=== PATIENT | male | born 2000 | race Caucasian/White ===

== ENCOUNTER 2024-10-01 23:57 | Emergency (ER) | payer OTHER, BC, SELFPAY ==
--- NOTE | ~2024-10-01 | CT_ITS ---
Clinical Indication: Trauma, status post fall CT Scan of the Chest, Abdomen, and Pelvis, thoracic spine, lumbar spine without Contrast: Technique: Contiguous sections were acquired throughout the chest, abdomen, and pelvis without IV con trast administration. Dedicated axial imaging of the thoracic and lumbar spine was also performed, wi th sagittal and coronal reformatted images. Dose reduction technique was used on this scan by [employer] automated exposure control and iterative reconstruction technique. The dose-length product (DLP) w as 2953.83 mGy-cm. Chest/abdomen/pelvis Findings: There is no evidence of any significant mediastinal, hilar or axillary lymphadenopathy. The mediastinal soft tissues appear normal. There is no evidence of pleural or pericardial effusion. The lungs are clear. No pulmonary nodules or infiltrates are noted. The liver, spleen, pancreas, gallbladder, adrenals and kidneys are within normal limits. No evidence of aortic aneurysm. No lymphadenopathy. No bowel obstruction or bowel wall thickening. There is no evidence to suggest acute appendicitis. Urinary bladder is unremarkable. No pelvic mass seen. No ascites. Thoracolumbar spine findings: Exam mildly degraded by motion artifact. No definite fracture or sublux ation seen in thoracic spine. No definite disc bulge or herniation. No definite canal stenosis, cord compression, or neural foraminal narrowing. There is no fracture or subluxation lumbar spine. Vertebral bodies maintain normal height and alignme nt. There are minimal degenerative disc changes. No disc bulge or herniation evident. No spinal canal stenosis or neural foraminal narrowing evident. Impression: No significant abnormalities seen. Reviewed, dictated and finalized at [facility]. IFIED NURSE Impression: No significant abnormalities seen.
--- NOTE | ~2024-10-01 | CT_ITS ---
Non-contrast Head CT History: Status post fall Technique: Axial non-contrast imaging of the brain was performed. Dose reduction technique was used on this scan by utilizing automated exposure control and iterative reconstruction technique. The dose -length product (DLP) was 605.33 mGy-cm. Findings: There is no evidence of intracranial hemorrhage, mass lesion, or acute infarct. Brain par enchyma appears normal. The ventricles and subarachnoid spaces are normal in size. The calvarium ap pears normal. The visualized paranasal sinuses and mastoid air cells are clear. Impression: No significant abnormality seen. Reviewed, dictated and finalized at location . GENCY MANAGER Impression: No significant abnormality seen.
--- NOTE | ~2024-10-01 | CT_ITS ---
CT Facial Bones and Cervical Spine Clinical Indication: Status post fall Technique: Contiguous axial scans were obtained through the facial bones and cervical spine followed by coronal and sagittal reconstructions. Dose reduction technique was used on this scan by utilizing automated exposure control and iterative reconstruction technique. The dose-length product (DLP) was 1094.48 mGy-cm. Findings: CT facial bones: There is a predominantly oblique, comminuted, minimally displaced fracture of the ri ght mandibular condyle. There is a subtle oblique, nondisplaced fracture through the angle of the lef t mandible. The visualized paranasal sinuses are clear. Intraorbital soft tissues appear normal. CT cervical spine: Exam degraded by motion artifact. No fractures or subluxation seen. Unremarkable visualized bony structures. The intervertebral disc spaces are preserved. No prevertebral soft tissu e swelling. Impression: Acute, predominantly oblique, comminuted, mildly displaced fracture the right mandibular condyle. Subtle, oblique, nondisplaced fracture of the angle of the left mandible. No fracture or subluxation of the cervical spine. Reviewed, dictated and finalized at [facility]. LIVER SORTER Impression: Acute, predominantly oblique, comminuted, mildly displaced fracture the right m andibular condyle. Subtle, oblique, nondisplaced fracture of the angle of the left mandible. No fracture or subluxation of the cervical spine.
[2024-10-01 23:59] VITALS: BP 125/79; PULSE 88; RESP 18; O2SAT 95
[2024-10-02] VITALS (8 sets, daily range): BP systolic 111–134; BP diastolic 62–93; PULSE 48–91; RESP 11–23; TEMP 36.4; O2SAT 90–100
--- NOTE | 2024-10-02 00:15 | PC.NURSE ---
patient to ct via stretcher
--- NOTE | 2024-10-02 00:30 | PC.NURSE ---
bilateral breath sounds clear to auscultation. abdominal sounds present in all 4 quadrants. no tenderness noted with palpation. patient will not remain still. kicking legs up and moving arms.
--- NOTE | 2024-10-02 00:33 | ECG_ITS ---
Test Date: 2024-10-02 00:53:57 Measurements Intervals [place] Rate: 75 P: 50 VT: 152 QRS: 101 QRSD: 122 T: -3 QT: 396 QTc: 443 Interpretive Statements SINUS RHYTHM RIGHT AXIS DEVIATION INTRAVENTRICULAR CONDUCTION DELAY ST ELEVATION IN ANT/HIGH LAT LEADS, PROBABLY EARLY REPOLARIZATION BORDERLINE ST-T WAVE ABNORMALITY- INFERIOR LEADS BORDERLINE ECG No previous ECG available for comparison Electronically Signed On 10-02-2024 07:09:21 MAINTENANCE ASSISTANT by Georges Fox D.O.
[2024-10-02 00:36] LABS: Alanine Aminotransferase 43 U/L (16-63); Alkaline Phosphatase 73 U/L (46-116); Anion Gap 12 mmol/L (4-12); Aspartate Amino Transferase 36 U/L (15-37); Bilirubin,Total 0.3 mg/dL (0.00-1.00); Blood Urea Nitrogen 12 mg/dL (7-18); Calcium 8.3 mg/dL (8.5-10.1); Carbon Dioxide 27 mmol/L (21-32); Chloride 105 mmol/L (98-108); Creatine Kinase 497 U/L (39-308); Estimated CRCL calculation 99 ml/min; Estimated Glomerular Filt Rate > 60; Glucose 136 mg/dL (70-99); Osmolality Calculated 299 mOsm/kg (285-295); Potassium 3.4 mmol/L (3.5-5.1); Sodium 144 mmol/L (136-145); Total Protein 7.4 g/dL (6.4-8.2)
[2024-10-02 00:37] LABS: Partial Thromboplastin Time 22.5 Sec (23.9-30.70); Prothrombin Time 10.7 Seconds (9.50-12.1)
--- NOTE | 2024-10-02 00:39 | PC.NURSE ---
several attempts to place rigid collar on arrival. patient kept pulling it off. patient now has cervical collar in place. with help of girlfriend, patient hands being distracted from pulling rigid collar off. patient does not lay still. moving arms and legs all around. will not maintain spinal mobilization.
[2024-10-02] MEDS: SODIUM CHLORIDE 0.9% IV 1,000 ML 999 ML IV CONT (00:42)
[2024-10-02] MEDS: MORPHINE SULFATE (*CRX) 4 MG/ML INJ IV PUSH (00:42)
--- NOTE | 2024-10-02 00:46 | PC.NURSE ---
patient is angry that the hard collar is in place. keeps trying to take it off. encouraging patient to keep collar in place. girlfriend at the bedside
[2024-10-02 00:47] LABS: Ethanol 252 mg/dL (0-6)
[2024-10-02 01:01] LABS: Basophils Absolute Auto 0.07 K/mm3 (0.00-0.10); Basophils Percent Auto 0.8 % (0.0-1.0); Eosinophils Absolute Auto 0.14 K/mm3 (0.02-0.50); Eosinophils Percent Auto 1.5 % (1.0-6.0); Hematocrit 42.7 % (40.0-54.0); Immature Granulocyte Absolute 0.08 K/mm3 (0.00-0.00); Immature Granulocyte Percent A 0.9 % (0.0-0.0); Lymphocytes Absolute Auto 4.32 K/mm3 (1.10-4.50); Lymphocytes Percent Auto 47.2 % (18.0-42.0); Mean Corpuscular HGB Conc 35.1 g/dL (32-36); Mean Corpuscular Hemoglobin 30.5 pg (27.0-31.0); Mean Corpuscular Volume 86.8 fL (78.0-102.0); Mean Platelet Volume 9.1 fl (8.7-11.0); Monocytes Absolute Auto 0.71 K/mm3 (0.10-0.90); Monocytes Percent Auto 7.8 % (2.0-11.0); Neutrophils Absolute Auto 3.84 K/mm3 (1.70-7.20); Neutrophils Percent Auto 41.8 % (50.0-70.0); Platelet Count Result 408 K/mm3 (150-420); Red Blood Count 4.92 M/mm3 (4.70-6.10); Red Cell Distribution Width 12.4 % (11.6-14.4); White Blood Count 9.2 K/mm3 (4.8-10.8)
--- NOTE | 2024-10-02 01:03 | PC.NURSE ---
patient continues to grunt and yell. continues to try and pull rigid collar off. girlfriend helping distract patient. gauze has been placed to wound on patients chin several times
[2024-10-02] MEDS: ONDANSETRON INJ 4 MG/2 ML VIAL IV PUSH (01:15)
[2024-10-02] MEDS: HYDROmorphone HCL INJ (*CRX) 2 MG/ML VIAL 1 MG IV PUSH (01:15)
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
[2024-10-02] MEDS: TETANUS,DIPHTHERIA,AC PERTUSSIS ADULT 0.5 ML (ADACEL) IM (01:30)
[2024-10-02] MEDS: LORazepam INJ (*CRX) 2 MG/ML VIAL 0.5 MG IV PUSH (01:45)
== END 2024-10-02 01:56 | disposition short-term general hospital (02) ==
PROVIDERS: Emergency Provider Emergency Medicine
DX: S02.609A Fracture of mandible, unspecified, initial encounter for closed fracture (principal); S01.81XA Laceration without foreign body of other part of head, initial encounter; T07.XXXA Unspecified multiple injuries, initial encounter; W13.9XXA Fall from, out of or through building, not otherwise specified, initial encounter; Z23 Encounter for immunization
CPT/HCPCS: 36415; 70450; 70486; 71250; 72125; 72128; 72131; 74176; 80053; 82077; 82550; 85025; 85610; 85730; 90471; 90715; 93005; 96361; 96374; 96375; 99285; J1171; J2060; J2270; J2405; J7030; L0150